=== PATIENT | female | born 1960 | race African-American/Black ===

== ENCOUNTER 2024-07-10 09:11 | Inpatient (IN) | payer OTHER ==
[~2024-07-10] VITALS: Ht 165.1 cm; Wt 105.8 kg
[~2024-07-10 09:11] MED LIST: ASPI81TA40 PO; LOSA-382 PO; NAPR-337 PO; RANI-379 PO; SIMV-260 PO
[2024-07-10] MEDS ORDERED: SIMV-43 PO (09:43)
[2024-07-10] MEDS ORDERED: AMLO5TAB66 PO (09:43)
[2024-07-10] MEDS ORDERED: LOSA100T59 PO (09:43)
[2024-07-10] MEDS ORDERED: ATEN100T92 PO (09:43)
[2024-07-10] MEDS ORDERED: FAMO20TA8 PO (09:43)
[2024-07-10] MEDS ORDERED: CHOL200074 PO (09:43)
[2024-07-10 10:35] LABS: HEMATOCRIT 38.8 % (36-46); HEMOGLOBIN 12.6 g/dL (12.0-16.0); LYMPHOCYTES # (AUTO) 1.3 K/uL (1.0-4.8); LYMPHOCYTES % (AUTO) 13.1 % (22.0-44.0); MEAN CORPUSCULAR HEMOGLOBIN 30.2 pg (26.0-34.0); MEAN CORPUSCULAR HGB CONC 32.4 G/dL (31.0-37.0); MEAN CORPUSCULAR VOLUME 93 fL (80-100); MONOCYTES # (AUTO) 0.7 K/uL (0.1-1.0); MONOCYTES % (AUTO) 7.2 % (2.0-9.0); NEUTROPHILS # (AUTO) 7.5 K/uL (1.8-7.7); NEUTROPHILS % (AUTO) 77.7 % (40.0-70.0); PLATELET COUNT (AUTO) 315 K/uL (150-450); RED BLOOD CELL COUNT(AUTO) 4.16 MIL/uL (4.00-5.20); RED CELL DISTRIBUTION WIDTH 13.9 % (11.5-14.5); WHITE BLOOD COUNT (AUTO) 9.7 K/uL (4.5-11.0)
[2024-07-10 10:46] LABS: CALCIUM, TOTAL 10.8 mg/dL (8.8-10.5); CREATININE 2.52 mg/dL (0.60-1.30); POTASSIUM 4.4 mmol/L (3.5-5.1)
[2024-07-10 10:53] LABS: BILIRUBIN,DIRECT 0.1 mg/dL (0.00-0.20); BILIRUBIN,TOTAL 0.5 mg/dL (0.1-1.0); TOTAL PROTEIN, SERUM 7.3 g/dL (6.4-8.2)
[2024-07-10 11:17] LABS: TROPONIN I-HIGH SENSITIVITY 462 ng/L (<51)
[2024-07-10] MEDS: ASPIRIN 81 MG CHEWABLE TABLET PO ONE (12:30)
[2024-07-10] MEDS ORDERED: SODIUM CHLORIDE 0.9% 250 ML IV ONE (12:45)
[2024-07-10] MEDS ORDERED: ONDANSETRON HCL 4 MG/2 ML VIAL IVP PRN (12:45)
[2024-07-10] MEDS ORDERED: 0.9% SODIUM CHLORIDE 10 ML SYRINGE IVP PRN (12:45)
[2024-07-10 13:13] LABS: TROPONIN I-HIGH SENSITIVITY 454 ng/L (<51)
[2024-07-10] MEDS: CefTRIAXone 1 GM/DEXTROSE 50 ML IV SCH (13:23)
[2024-07-10] MEDS: SODIUM CHLORIDE 0.9% 250 ML IV ONE (13:24)
[2024-07-10 14:01] LABS: ANION GAP 12 mmol/L (8-16); CALCIUM, TOTAL 10.6 mg/dL (8.8-10.5); CARBON DIOXIDE 23 mmol/L (22-29); CHLORIDE 104 mmol/L (98-107); GLOMERULAR FILTR. RATE CALC 23 mL/min (>60); GLUCOSE,RANDOM 99 mg/dL (70-110); POTASSIUM 4.5 mmol/L (3.5-5.1); SODIUM SERUM 139 mmol/L (136-145); UREA NITROGEN, BLOOD 44 mg/dL (7-18)
[2024-07-10 14:07] LABS: ALANINE AMINOTRANSFERASE 24 U/L (12-78); ALBUMIN 2.8 g/dL (3.4-5.0); ALKALINE PHOSPHATASE 120 U/L (46-116); ASPARTATE AMINOTRANSFERASE 41 U/L (15-37); BILIRUBIN,TOTAL 0.5 mg/dL (0.1-1.0); LACTATE DEHYDROGENASE 608 U/L (81-234); TOTAL PROTEIN, SERUM 6.8 g/dL (6.4-8.2)
[2024-07-10 14:10] LABS: LACTIC ACID 1.1 mmol/L (0.4-2.0)
[2024-07-10] MEDS: AZITHROMYCIN 500 MG/NS 250 ML IV SCH (15:00)
[2024-07-10] MEDS: HEPARIN SODIUM,PORCINE 5,000 UNITS/ML VIAL SQ SCH (16:00)
[2024-07-10 16:18] LABS: CREATININE,URINE RANDOM 322.2 mg/dL (30.0-125.0)
[2024-07-10 16:20] LABS: APPEARANCE,URINE CLEAR (CLEAR); BILIRUBIN,URINE NEGATIVE (NEGATIVE); COLOR,URINE YELLOW (YELLOW); GLUCOSE, URINE (UA) NEGATIVE (NEGATIVE); KETONES,URINE NEGATIVE (NEGATIVE); LEUKOCYTE ESTERASE ,URINE TRACE (NEGATIVE); NITRATE,URINE POSITIVE (NEGATIVE); OCCULT BLOOD,URINE TRACE (NEGATIVE); PROTEIN,URINE TRACE mg/dL (NEGATIVE); SPECIFIC GRAVITIY, URINE 1.016 (1.003-1.030); UROBILINOGEN,URINE <=1.0 mg/dL (<=1.0)
[2024-07-10 16:52] LABS: BACTERIA,URINE Moderate /HPF (None Seen); RBC,URINE 0-2 /HPF (0-2); SQUAMOUS EPITHELIAL CELL,UR Few /LPF (None Seen)
[2024-07-10 17:12] LABS: INFLUENZA A-RTPCR,COMBO NEGATIVE (NEGATIVE); INFLUENZA B-RTPCR,COMBO NEGATIVE (NEGATIVE); RESPIRATORY SYNCYTIAL VRS-PCR NEGATIVE (NEGATIVE); SARS COVID19 RTPCR, COMBO NEGATIVE (NEGATIVE)
[2024-07-10 17:51] VITALS: BP 123/69; PULSE 80; RESP 18; TEMP 98.2; O2SAT 93
[2024-07-10 19:25] VITALS: BP 110/47; PULSE 84; RESP 19; TEMP 97.8; O2SAT 97
[2024-07-10 23:12] VITALS: BP 116/62; PULSE 82; RESP 18; TEMP 98; O2SAT 96
[2024-07-11] MEDS: ACETAMINOPHEN 325 MG TABLET PO PRN (01:12)
[2024-07-11 03:44] VITALS: BP 107/59; PULSE 79; RESP 18; TEMP 97.7; O2SAT 95
[2024-07-11 07:15] VITALS: BP 137/58; PULSE 85; RESP 18; TEMP 97.9; O2SAT 96
[2024-07-11 07:25] LABS: BASOPHILS % (AUTO) 0.4 % (0.0-2.0); EOSINOPHILS % (AUTO) 1.9 % (1.0-6.0); HEMATOCRIT 34.5 % (36-46); HEMOGLOBIN 11.1 g/dL (12.0-16.0); LYMPHOCYTES # (AUTO) 1.4 K/uL (1.0-4.8); LYMPHOCYTES % (AUTO) 16.8 % (22.0-44.0); MEAN CORPUSCULAR HEMOGLOBIN 30.2 pg (26.0-34.0); MEAN CORPUSCULAR HGB CONC 32.3 G/dL (31.0-37.0); MEAN CORPUSCULAR VOLUME 94 fL (80-100); MONOCYTES # (AUTO) 0.8 K/uL (0.1-1.0); MONOCYTES % (AUTO) 9.8 % (2.0-9.0); NEUTROPHILS # (AUTO) 5.8 K/uL (1.8-7.7); NEUTROPHILS % (AUTO) 71.1 % (40.0-70.0); PLATELET COUNT (AUTO) 246 K/uL (150-450); RED BLOOD CELL COUNT(AUTO) 3.69 MIL/uL (4.00-5.20); WHITE BLOOD COUNT (AUTO) 8.1 K/uL (4.5-11.0)
[2024-07-11 07:39] LABS: MAGNESIUM 2.1 mg/dL (1.80-2.40)
[2024-07-11 08:29] LABS: CALCIUM, TOTAL 10.1 mg/dL (8.8-10.5); CREATININE 2.35 mg/dL (0.60-1.30); POTASSIUM 4.7 mmol/L (3.5-5.1)
[2024-07-11 11:59] VITALS: BP 129/80; PULSE 75; RESP 18; TEMP 98; O2SAT 96
[2024-07-11] MEDS ORDERED: ASPI-1444 PO (13:46)
[2024-07-11] MEDS: PB/HYOSCY/ATR/SCOP/LIDO/MAALOX 55 ML BOTTLE PO ONE (14:25)
[2024-07-11 16:30] VITALS: BP 131/63; PULSE 81; RESP 18; TEMP 97.9; O2SAT 97
[2024-07-11] MEDS: FUROSEMIDE 20 MG/2 ML VIAL IVP ONE (17:39)
[2024-07-11 20:37] VITALS: BP 113/60; PULSE 97; RESP 19; TEMP 98; O2SAT 96
[2024-07-12 00:36] VITALS: BP 108/61; PULSE 100; RESP 18; TEMP 97.9; O2SAT 95
[2024-07-12 05:21] VITALS: BP 121/77; PULSE 113; RESP 18; TEMP 98.1; O2SAT 96
[2024-07-12 07:54] LABS: PROTHROMBIN TIME 10.6 SEC (9.4-11.6)
[2024-07-12 08:19] LABS: CALCIUM, TOTAL 10.8 mg/dL (8.8-10.5); CREATININE 2.02 mg/dL (0.60-1.30); MAGNESIUM 2.2 mg/dL (1.80-2.40); PHOSPHORUS 3.6 mg/dL (2.5-4.9); POTASSIUM 4.9 mmol/L (3.5-5.1)
[2024-07-12 08:59] VITALS: BP 113/70; PULSE 117; RESP 22; TEMP 98.3; O2SAT 99
[2024-07-12 09:06] LABS: TROPONIN I-HIGH SENSITIVITY 195 ng/L (<51)
[2024-07-12 10:51] LABS: SPECIMENTYPE,BODY FLUID ASCITES
[2024-07-12 12:05] LABS: APPEARANCE,SPUN,BODY FLUID CLEAR (CLEAR); APPEARANCE,UNSPUN,BODY FLUID CLOUDY (CLEAR); COLOR,BODY FLUID AMBER (LT YELLOW); NEUTROPHILS,BODY FLUID 6 %; TOTAL VOLUME,BODY FLUID 1140 mL
[2024-07-12 12:06] LABS: LYMPHOCYTES,BODY FLUID 69 %; MONOCYTES,BODY FLUID 15 %; OTHER CELLS,BODY FLUID 10
[2024-07-12 12:09] LABS: WBC, BODY FLUID 335 /cu. mm.
[2024-07-12 12:14] LABS: PH, BODY FLUID 8
[2024-07-12] MEDS ORDERED: ALBUMIN HUMAN 25%-12.5GM/50ML 50 ML IV ONE (16:30)
[2024-07-12 20:30] VITALS: BP 111/49; PULSE 109; RESP 19; TEMP 98; O2SAT 97
[2024-07-13] VITALS: BP 121/89; PULSE 108; RESP 19; TEMP 97.4; O2SAT 96
[2024-07-13 03:39] VITALS: BP 106/58; PULSE 102; RESP 19; TEMP 97.9; O2SAT 98
[2024-07-13 06:36] LABS: BASOPHILS % (AUTO) 0.5 % (0.0-2.0); EOSINOPHILS % (AUTO) 2.8 % (1.0-6.0); HEMATOCRIT 33.3 % (36-46); HEMOGLOBIN 10.9 g/dL (12.0-16.0); LYMPHOCYTES # (AUTO) 1.2 K/uL (1.0-4.8); LYMPHOCYTES % (AUTO) 15.6 % (22.0-44.0); MEAN CORPUSCULAR HEMOGLOBIN 30.4 pg (26.0-34.0); MEAN CORPUSCULAR HGB CONC 32.7 G/dL (31.0-37.0); MEAN CORPUSCULAR VOLUME 93 fL (80-100); MONOCYTES # (AUTO) 0.7 K/uL (0.1-1.0); NEUTROPHILS # (AUTO) 5.6 K/uL (1.8-7.7); NEUTROPHILS % (AUTO) 72.1 % (40.0-70.0); PLATELET COUNT (AUTO) 246 K/uL (150-450); RED BLOOD CELL COUNT(AUTO) 3.58 MIL/uL (4.00-5.20); RED CELL DISTRIBUTION WIDTH 13.9 % (11.5-14.5); WHITE BLOOD COUNT (AUTO) 7.7 K/uL (4.5-11.0)
[2024-07-13 06:46] LABS: CALCIUM, TOTAL 10.5 mg/dL (8.8-10.5); CREATININE 1.59 mg/dL (0.60-1.30); MAGNESIUM 1.9 mg/dL (1.80-2.40); PHOSPHORUS 2.5 mg/dL (2.5-4.9); POTASSIUM 4.6 mmol/L (3.5-5.1)
[2024-07-13 08:05] VITALS: BP 124/64; PULSE 102; RESP 19; TEMP 98; O2SAT 99
[2024-07-13] MEDS ORDERED: PENTETATE DTPA TC99M/MCL ISOTOPE 1 EA INJ INJ ONE (11:20)
[2024-07-13] MEDS ORDERED: MAA ALBUMIN AGGREGATED TC99M/UD<10MCL ISOTOPE 1 EA INJ INJ ONE (11:40)
[2024-07-13 12:06] LABS: TOTAL PROTEIN,BODY FLUID,REF 4.9 g/dL; URIC ACID, BODY FLUID,REF 13.7 mg/dL
[2024-07-13] MEDS ORDERED: SODIUM CHLORIDE 0.9% 250 ML IV ONE (13:35)
[2024-07-13] MEDS: ALBUMIN HUMAN 25%-12.5GM/50ML 50 ML IV ONE (16:03)
[2024-07-13 16:11] VITALS: BP 130/77; PULSE 114; RESP 20; TEMP 98.3; O2SAT 95
[2024-07-13 20:41] VITALS: BP 129/51; PULSE 119; RESP 20; TEMP 97.9; O2SAT 94
[2024-07-13] MEDS: METOPROLOL SUCCINATE 25 MG ER TABLET PO SCH (20:50)
[2024-07-14 01:53] VITALS: BP 130/65; PULSE 115; RESP 20; TEMP 97.7; O2SAT 95
[2024-07-14 04:25] VITALS: BP 130/65; PULSE 106; RESP 20; TEMP 97.5; O2SAT 98
[2024-07-14] MEDS ORDERED: FUROSEMIDE 40 MG/4 ML VIAL IVP ONE (07:30)
[2024-07-14 07:43] LABS: BASOPHILS % (AUTO) 0.6 % (0.0-2.0); EOSINOPHILS % (AUTO) 2.3 % (1.0-6.0); HEMATOCRIT 33.3 % (36-46); HEMOGLOBIN 10.8 g/dL (12.0-16.0); LYMPHOCYTES # (AUTO) 0.8 K/uL (1.0-4.8); LYMPHOCYTES % (AUTO) 11.2 % (22.0-44.0); MEAN CORPUSCULAR HGB CONC 32.4 G/dL (31.0-37.0); MEAN CORPUSCULAR VOLUME 93 fL (80-100); MONOCYTES # (AUTO) 0.7 K/uL (0.1-1.0); MONOCYTES % (AUTO) 9.2 % (2.0-9.0); NEUTROPHILS # (AUTO) 5.8 K/uL (1.8-7.7); NEUTROPHILS % (AUTO) 76.7 % (40.0-70.0); PLATELET COUNT (AUTO) 237 K/uL (150-450); RED BLOOD CELL COUNT(AUTO) 3.59 MIL/uL (4.00-5.20); RED CELL DISTRIBUTION WIDTH 13.9 % (11.5-14.5); WHITE BLOOD COUNT (AUTO) 7.6 K/uL (4.5-11.0)
[2024-07-14 07:44] VITALS: BP 106/57; PULSE 103; RESP 18; TEMP 97.8; O2SAT 95
[2024-07-14 08:49] LABS: CALCIUM, TOTAL 10.1 mg/dL (8.8-10.5); CREATININE 1.72 mg/dL (0.60-1.30); MAGNESIUM 1.7 mg/dL (1.80-2.40); PHOSPHORUS 2.1 mg/dL (2.5-4.9); POTASSIUM 4.2 mmol/L (3.5-5.1)
[2024-07-14] MEDS: METOPROLOL TARTRATE 25 MG TABLET PO SCH (08:54)
[2024-07-14] MEDS: FUROSEMIDE 20 MG TABLET PO SCH (08:54)
[2024-07-14] MEDS: SPIRONOLACTONE 25 MG TABLET PO SCH (08:54)
[2024-07-14] MEDS ORDERED: FURO20 PO (09:09)
[2024-07-14] MEDS ORDERED: FERR325T27 PO (09:15)
[2024-07-14] MEDS: MAGNESIUM SULFATE 2 GM/WATER 50 ML IV ONE (10:29)
[2024-07-14 11:39] VITALS: BP 115/77; PULSE 104; RESP 16; TEMP 97.4; O2SAT 95
[2024-07-14] MEDS ORDERED: AZIT-167 PO (14:28)
[2024-07-14] MEDS ORDERED: CEFD300C18 PO (14:28)
[2024-07-16 11:07] LABS: TOTAL PROTEIN,BODY FLUID,REF 4.8 g/dL
== END 2024-07-14 15:55 | disposition home or self-care (01) | DRG 291 ==
LOC: EMS 09:11 → EDH 12:35 → 5S 17:28
PROVIDERS: ADMIT Internal Medicine; ATTEND Internal Medicine
PROC: 0W9G3ZZ Drainage of Peritoneal Cavity, Percutaneous Approach (ICD-10-PCS; principal; 2024-07-12)
PROC: 05HC33Z Insertion of Infusion Device into Left Basilic Vein, Percutaneous Approach (ICD-10-PCS; 2024-07-13)
PROC: B54NZZA Ultrasonography of Left Upper Extremity Veins, Guidance (ICD-10-PCS; 2024-07-13)
DX: I13.0 Hypertensive heart and chronic kidney disease with heart failure and stage 1 through stage 4 chronic kidney disease, or unspecified chronic kidney disease (principal); I50.33 Acute on chronic diastolic (congestive) heart failure; J18.9 Pneumonia, unspecified organism; J96.01 Acute respiratory failure with hypoxia; N17.0 Acute kidney failure with tubular necrosis; C78.6 Secondary malignant neoplasm of retroperitoneum and peritoneum; R18.8 Other ascites; E44.0 Moderate protein-calorie malnutrition; N18.2 Chronic kidney disease, stage 2 (mild); Z20.822 Contact with and (suspected) exposure to COVID-19; E83.52 Hypercalcemia; E11.22 Type 2 diabetes mellitus with diabetic chronic kidney disease; Z68.38 Body mass index [BMI] 38.0-38.9, adult; E78.00 Pure hypercholesterolemia, unspecified; D64.9 Anemia, unspecified; E66.9 Obesity, unspecified; Z79.82 Long term (current) use of aspirin; Z86.16 Personal history of COVID-19
CPT/HCPCS: 0241U; 36245; 36569; 49083; 74022; 74176; 76856; 76937; 76942; 78582; 80048; 80053; 80076; 81001; 82042; 82465; 82550; 82570; 82945; 83605; 83615; 83735; 83880; 83986; 84100; 84145; 84156; 84157; 84300; 84478; 84484; 84560; 85025; 85610; 85730; 87015; 87040; 87075; 87086; 87186; 87205; 87206; 88108; 88305; 88341; 88342; 89051; 93005; 93306; 99285; A9539; A9540; J0456; J0696; J1644; J1940; J3475; J7050; P9047; 36415-L1; 36415-TC; 87070